=== PATIENT | male | born 1960 | race Caucasian/White ===

== ENCOUNTER → 2017-02-17 | Outpatient (CLI) | payer OTHER ==
[2017-02-17 13:37] LABS: Non-African American GFR(MDRD) >60 (>60 ml/min/1.73 sqM)
--- NOTE | 2017-02-18 19:56 | MR ---
EXAMINATION TYPE: MR cervical spine wo/w con DATE OF EXAM: 02/17/2017 2:38 PM COMPARISON: NONE HISTORY: cervical radiculopathy TECHNIQUE: Multiplanar, multisequence images of the cervical spine were acquired utilizing 20 mL intravenous Mul tiHance gadolinium contrast. Diffusion weighted imaging was performed. C2-C3: No evidence for degenerative disc disease. No disc bulge/herniation or protrusion. No Canal stenosis. Foramina are patent bilaterally. C3-C4: Central disc bulge has moderate anterior thecal sac compression and close approximation with s anisa cord. No spinal canal stenosis is present. There is moderate bilateral foraminal narrowing. C4-C5: Broad-based disc bulge is present with some extension inferiorly. No cord contact is evident. No AP spinal canal stenosis is present. Severe left and right foraminal narrowing is present. C5-C6: There is a central disc herniation with moderate anterior thecal sac compression. Cord contact is evident. Some cord flattening is present. Spinal canal stenosis is present. Neural foramen are se verely narrowed. C6-C7: There is a central disc herniation which is broad-based and extending inferior to C7. This is moderate anterior thecal sac compression. AP spinal canal stenosis is present. Neural foramen and sev ere right and moderate left foraminal stenosis. AP diameter is 0.8 cm. Cord deformity is present. C7-T1: Disc uncovering is present. There is mild anterior thecal sac compression. No focal disc herni ation is evident. Mild anterior thecal sac compression is present. Moderate right foraminal narrowing is present mild left foraminal narrowing is present. No abnormal enhancement is identified. IMPRESSION: Multilevel degenerative disc changes with loss of disc height especially through the C4-5, C5-6, and C6-7 levels. 2. No spinal canal stenosis due to disc bulging C5-6 and C6-7. 3. Cord contact with cord deformity is present C5-6 due to the disc bulging and herniation. Cord cont act is present C6-7. 4. Multilevel foraminal stenosis.
== END | disposition home or self-care (01) ==
LOC: RADMRIMAIN 13:02
PROVIDERS: ATTEND Internal Medicine Rheumatology
DX: M99.71 Connective tissue and disc stenosis of intervertebral foramina of cervical region (principal); M50.122 Cervical disc disorder at C5-C6 level with radiculopathy; M47.812 Spondylosis without myelopathy or radiculopathy, cervical region
CPT/HCPCS: 82565; 72156; A9577

== ENCOUNTER → 2017-03-12 | Outpatient (CLI) | payer OTHER ==
--- NOTE | 2017-03-13 00:37 | US ---
EXAMINATION TYPE: US MSK right wrist, median nerve DATE OF EXAM: 03/12/2017 1:39 PM COMPARISON: NONE CLINICAL HISTORY: 56-year-old male G56.01 CARPAL TUNNEL SYNDROME. TECHNIQUE: Multiple sonographic images of the median nerve within the distal forearm and carpal tunne l were obtained. Dynamic maneuvers were utilized to assess median nerve mobility. FINDINGS: The median nerve at the level of the pronator quadratus has a cross-sectional area of 8.1 sq mm. At the level of the carpal tunnel, there is fusiform dilatation with hypoechoic appearance and loss o f the normal fascicular architecture. The median nerve becomes thickened to a cross-sectional area of 15.5 sq mm at the level of the carpal tunnel. In addition, pinch and pinch/flex maneuvers show restricted mobility of the median nerve with loss of normal movement between the radial and ulnar bursae. IMPRESSION: Thickening, restricted mobility, and loss of the normal fascicular architecture of the median nerve a t the level of the carpal tunnel. Along with the overall increase in cross-sectional area by 7 sq mm, findings are suggestive of carpal tunnel syndrome.
== END | disposition home or self-care (01) ==
LOC: RADUSWWP 13:00
PROVIDERS: ATTEND Internal Medicine Rheumatology
DX: G56.01 Carpal tunnel syndrome, right upper limb (principal)

== ENCOUNTER → 2020-08-04 | Outpatient (CLI) | payer MEDICARE, OTHER ==
--- NOTE | 2020-08-04 14:27 | MR ---
EXAMINATION TYPE: MR cspine/lspine wo/w con DATE OF EXAM: 08/04/2020 COMPARISON: Prior MR cervical spine 02/17/2017 HISTORY: Stenosis / cervical radiculopathy TECHNIQUE: Multiplanar, multisequence images of the lumbar and cervical spine is performed without and with IV c ontrast, utilizing 9 mL intravenous Gadavist FINDINGS: Cervical spine MRI: There is a spinal curvature alignment is stable. There is multilevel spondylosis as seen on prior exam. Loss of disc height signal is present intervertebral level and there is endpla te discogenic marrow signal change, cervical cord signal is maintained. C2-3: Unremarkable C3-4: Posterior extension endplate disc complex causes mild anterior mass effect on the thecal sac. N o significant spinal stenosis. Uncovertebral joint hypertrophy causes bilateral foraminal encroachmen t C4-5: Bilateral foraminal encroachment is present. Posterior extension of endplate disc complex cause s mild anterior mass effect on the thecal sac. C5-6: Posterior extension endplate disc complex contacts the anterior cervical cord. There is mild to moderate central stenosis. Some foraminal encroachment is present greater on the left than on the ri ght. C6-7: Posterior extension endplate disc complex may contact the anterior cervical cord. Moderate cent ral stenosis. There is left-sided foraminal encroachment C7-T1: Unremarkable. No abnormal enhancement following contrast administration. IMPRESSION: Degenerative disc disease, multilevel foraminal encroachment. Findings similar to prior e xam. Lumbar spine MRI: Sagittal images of the lumbar spine show spinal curvature, vertebral bodies show preserved height, th ere is multilevel spondylosis with endplate discogenic marrow signal change. Loss of disc height and signal is present at intervertebral levels, vacuum phenomenon present at each level with exception of L2-3. L3 shows hemangioma within the vertebral body anteriorly and superiorly. No abnormal enhanceme nt following contrast administration. Tarlov cyst noted incidentally of the sacrum. L5-S1: There is a posterior central disc herniation present causing anterior mass effect on the theca l sac, circumferential extension endplate disc complex encroaches somewhat on the right neural forame n with associated facet arthropathy, hypertrophic change. L4-5: Posterior disc bulge causes only minimal anterior mass effect on the thecal sac. No significant spinal stenosis. Circumferential extension endplate disc complex encroaches somewhat on the right ne ural foramen. There is some facet arthropathy with hypertrophy of ligamentum flavum causing posterior lateral mass effect on the thecal sac L3-4: Posterior extension of endplate disc complex causes only minimal anterior mass effect on the th ecal sac. There is facet arthropathy with hypertrophy ligamentum flavum. Circumferential extension en dplate disc complex encroaches somewhat on the foramina greater on the right. L2-3: No evident disc herniation or significant foraminal encroachment, no spinal stenosis. L1-2: Posterior extension endplate disc complex causes anterior mass effect on the thecal sac. No sig nificant foraminal encroachment or spinal stenosis. T12-L1: Posterior extension endplate disc complex causes only minimal anterior mass effect on the the robert sac. IMPRESSION: Degenerative disc disease and facet arthropathy, foraminal encroachment as described.
== END | disposition home or self-care (01) ==
LOC: RADMRIMAIN 12:35
PROVIDERS: ATTEND Family Medicine
DX: M50.10 Cervical disc disorder with radiculopathy, unspecified cervical region (principal); M51.36 Other intervertebral disc degeneration, lumbar region; M47.816 Spondylosis without myelopathy or radiculopathy, lumbar region; M46.06 Spinal enthesopathy, lumbar region
CPT/HCPCS: 72156; 72158; A9585

== ENCOUNTER → 2021-06-15 | Outpatient (CLI) | payer MEDICARE, OTHER ==
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
[2021-06-15 13:00] VITALS: BP 100/68; PULSE 87; RESP 16; TEMP 98.1
== END ==
LOC: PNWHC3 12:19
PROVIDERS: ATTEND Anesthesiology
DX: M47.812 Spondylosis without myelopathy or radiculopathy, cervical region (principal); M47.816 Spondylosis without myelopathy or radiculopathy, lumbar region; G20 Parkinson's disease; E78.5 Hyperlipidemia, unspecified; M19.90 Unspecified osteoarthritis, unspecified site; Z87.891 Personal history of nicotine dependence; Z79.899 Other long term (current) drug therapy; Z88.4 Allergy status to anesthetic agent; Z91.040 Latex allergy status
CPT/HCPCS: 99211

== ENCOUNTER → 2021-11-24 | Outpatient (CLI) | payer MEDICARE, OTHER ==
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
== END ==
LOC: SLEEP 13:38
PROVIDERS: ATTEND Internal Medicine
DX: G47.33 Obstructive sleep apnea (adult) (pediatric) (principal); G47.52 REM sleep behavior disorder; G20 Parkinson's disease; F32.A Depression, unspecified; Z86.59 Personal history of other mental and behavioral disorders; Z86.79 Personal history of other diseases of the circulatory system; Z85.828 Personal history of other malignant neoplasm of skin; Z98.890 Other specified postprocedural states; Z87.828 Personal history of other (healed) physical injury and trauma; Z90.09 Acquired absence of other part of head and neck; Z96.652 Presence of left artificial knee joint; Z90.49 Acquired absence of other specified parts of digestive tract; Z85.850 Personal history of malignant neoplasm of thyroid; Z90.89 Acquired absence of other organs; Z90.79 Acquired absence of other genital organ(s); Z91.040 Latex allergy status; Z88.4 Allergy status to anesthetic agent
CPT/HCPCS: 99211

== ENCOUNTER 2024-07-29 15:26 | Emergency (ER) | payer MEDICARE, OTHER ==
[2024-07-29 15:45] VITALS: TEMP 97.9
--- NOTE | 2024-07-29 15:56 | ED ---
General Adult HPI - General Chief complaint: Psychiatric Symptoms Stated complaint: Petitioned Time Seen by Provider: 07/29/24 15:40 Source: patient, EMS, RN notes reviewed Mode of arrival: EMS Limitations: altered mental status - History of Present Illness Initial comments: Patient is a 63-year-old male presenting to the emergency department for mental health evaluation. Patient believes his petitioned him. Patient questions whether or not his medications are working. Patient does not have any specific complaints and is reluctant to provide full history. Patient denies alcohol use. Patient admits to marijuana use. No new physical complaints. Patient denies suicidal or homicidal thoughts. No hallucinations. - Related Data Home Medications Medication Instructions Recorded Confirmed Finasteride [Proscar] 5 mg PO DAILY 08/20/20 07/29/24 Levothyroxine Sodium [Synthroid] 175 mcg PO DAILY 08/20/20 07/29/24 Ascorbic Acid/Multivit-Min 1,000 mg PO DAILY 07/29/24 07/29/24 [Emergen-C 1,000 mg Packet] Carbidopa/Levodopa [Rytary ER 1 cap PO QID 07/29/24 07/29/24 61.25 mg-245 mg Cap] DULoxetine HCL [Cymbalta] 60 mg PO BID 07/29/24 07/29/24 Donepezil [Aricept] 10 mg PO DAILY 07/29/24 07/29/24 Gabapentin [Neurontin] 100 mg PO TID 07/29/24 07/29/24 Meclizine [Antivert] 25 mg PO BID 07/29/24 07/29/24 Melatonin 15 mg PO HS 07/29/24 07/29/24 Meloxicam [Mobic] 15 mg PO DAILY 07/29/24 07/29/24 Metoprolol Succinate (ER) [Toprol 12.5 mg PO DAILY 07/29/24 07/29/24 Xl] Midodrine HCl [ProAmatine] 10 mg PO TID 07/29/24 07/29/24 Morphine Sulfate ER [Ms Contin] 15 mg PO Q12HR 07/29/24 07/29/24 Omeprazole 40 mg PO DAILY 07/29/24 07/29/24 Ondansetron [Zofran] 4 mg PO TID 07/29/24 07/29/24 QUEtiapine [SEROquel] 50 mg PO HS 07/29/24 07/29/24 Sennosides/Docusate Sodium 1 tab PO BID 07/29/24 07/29/24 [Senna-S 8.6-50 mg Tablet] Tamsulosin [Flomax] 0.4 mg PO DAILY 07/29/24 07/29/24 Topiramate [Topamax] 50 mg PO BID 07/29/24 07/29/24 amantadine HCL [Amantadine] 100 mg PO TID-W/MEALS 07/29/24 07/29/24 tadalafiL [Cialis] 5 mg PO DAILY 07/29/24 07/29/24 Allergies Allergy/AdvReac Type Severity Reaction Status Date / Time latex Allergy Rash/Hives Verified 07/29/24 19:18 midazolam [From Versed] Allergy Rash/Hives Verified 07/29/24 19:18 Review of Systems ROS Statement: Those systems with pertinent positive or pertinent negative responses have been documented in the HPI. ROS Other: All systems not noted in ROS Statement are negative. Constitutional: Denies: fever Eyes: Denies: eye pain ENT: Denies: ear pain Respiratory: Denies: cough Cardiovascular: Denies: chest pain Endocrine: Denies: fatigue Gastrointestinal: Denies: abdominal pain Musculoskeletal: Denies: back pain Skin: Denies: rash Psychiatric: Reports: as per HPI Past Medical History Past Medical History: Cancer, GERD/Reflux, Hyperlipidemia, Osteoarthritis (OA), Pneumonia, Prostate Disorder, Sleep Apnea/CPAP/BIPAP, Thyroid Disorder Additional Past Medical History / Comment(s): low blood pressure, WPW syndrome and bigeminy, histoplasmosis (lung fungal), kidney stones, hx staph infection in rt elbow, no cpap used, hiatal hernia, hx thyroid cancer, hx skin cancer, hx anemia, hx spinal meningitis, hx "several concussion and fx skull" History of Any Multi-Drug Resistant Organisms: None Reported Past Surgical History: Cardiac Ablation, Cholecystectomy, Heart Catheterization, Orthopedic Surgery, Tonsillectomy Additional Past Surgical History / Comment(s): mult cardiac ablations, thyroidectomy, surgery to check lymph nodes in chest for cancer, left knee replacement, rt hand surgery -trigger fingers, removed multiple skin cancers, left knee surgeries/arthroscopy, septal surgery, testicle removed - preventatively. I&D right elbow for staph infection Past Anesthesia/Blood Transfusion Reactions: Previous Problems w/ Anesthesia, Motion Sickness Additional Past Anesthesia/Blood Transfusion Reaction / Comment(s): bleeding issues in past post surgeries - so doesnt take any blood thinners, "sometimes anesthesia does not work-I am wide awake" Past Psychological History: Anxiety, Depression Smoking Status: Former smoker Past Alcohol Use History: None Reported Past Drug Use History: None Reported - Past Family History Father Family Medical History: No Reported History Mother Family Medical History: No Reported History General Exam Limitations: altered mental status General appearance: alert, in no apparent distress Head exam: Present: normocephalic Eye exam: Present: normal appearance Neck exam: Present: normal inspection Respiratory exam: Present: normal lung sounds bilaterally Cardiovascular Exam: Present: regular rate, normal rhythm GI/Abdominal exam: Present: soft. Absent: tenderness Extremities exam: Present: normal inspection Neurological exam: Present: alert Psychiatric exam: Present: flat affect Skin exam: Present: normal color Course Vital Signs 07/29/24 15:32 Temperature 97.9 F Pulse Rate 82 Respiratory 18 Rate Blood Pressure 138/76 O2 Sat by Pulse 98 Oximetry Medical Decision Making - Medical Decision Making Was pt. sent in by a medical professional or institution (, PA, MIXING TECHNICIAN, urgent care, hospital, or prison...) When possible be specific @ -No Did you speak to anyone other than the patient for history (EMS, parent, family, police, friend...)? What history was obtained from this source @ -No Did you review nursing and triage notes (agree or disagree)? Why? @ -I reviewed and agree with nursing and triage notes Were old charts reviewed (outside hosp., previous admission, EMS record, old EKG, old radiological studies, urgent care reports/EKG's, prison records)? Report findings @ -Petition reviewed Differential Diagnosis (chest pain, altered mental status, abdominal pain women, abdominal pain men, vaginal bleeding, weakness, fever, dyspnea, syncope, headache, dizziness, GI bleed, back pain, seizure, CVA, palpatations, mental health, musculoskeletal)? @ -Differential Mental Health Depression, anxiety, bipolar, psychosis, schizophrenia, borderline personality, situational depression, adjustment disorder, behavioral disorder, brain tumor, malingering, substance abuse, encephalopathy, medication reaction, dementia, hypothyroidism, degenerative neurologic disorder, lupus.... This is not meant to be all-inclusive list EKG interpreted by me (3pts min.). @ -As above X-rays interpreted by me (1pt min.). @ -None done CT interpreted by me (1pt min.). @ -None done U/S interpreted by me (1pt. min.). @ -None done What testing was considered but not performed or refused? (CT, X-rays, U/S, labs)? Why? @ -None What meds were considered but not given or refused? Why? @ -None Did you discuss the management of the patient with other professionals (professionals i.e. DrSanti, PA, MIXING TECHNICIAN, lab, RT, psych nurse, social work faculty member, general ledger accountant, teacher, chief compliance officer, case monitor)? Give summary @ -Case was discussed with psychiatric nurse with plans for discharge Was smoking cessation discussed for >3mins.? @ -No Was critical care preformed (if so, how long)? @ -No Were there social determinants of health that impacted care today? How? (Homelessness, low income, unemployed, alcoholism, drug addiction, transportation, low edu. Level, literacy, decrease access to med. care, skilled nursing, rehab)? @ -No Was there de-escalation of care discussed even if they declined (Discuss DNR or withdrawal of care, Hospice)? DNR status @ -No What co-morbidities impacted this encounter? (DM, HTN, Smoking, COPD, CAD, Cancer, CVA, ARF, Chemo, Hep., AIDS, mental health diagnosis, sleep apnea, morbid obesity)? @ -History of Parkinson Was patient admitted / discharged? Hospital course, mention meds given and route, prescriptions, significant lab abnormalities, going to OR and other pertinent info. @ -Patient presents with concerns for not taking his medications and seeing cobwebs. Patient denies any problems. Patient denies suicidal or homicidal thoughts. Patient will be discharged with recommended follow-up Undiagnosed new problem with uncertain prognosis? @ -No Drug Therapy requiring intensive monitoring for toxicity (Heparin, Nitro, Insulin, Cardizem)? @ -No Were any procedures done? @ -No Diagnosis/symptom? @ -Mood disorder Acute, or Chronic, or Acute on Chronic? @ -Acute Uncomplicated (without systemic symptoms) or Complicated (systemic symptoms)? @ -Default Side effects of treatment? @ -No Exacerbation, Progression, or Severe Exacerbation? @ -No Poses a threat to life or bodily function? How? (Chest pain, USA, DC, pneumonia, PE, COPD, DKA, ARF, appy, cholecystitis, CVA, Diverticulitis, Homicidal, Suicidal, threat to staff... and all critical care pts) @ -No - Lab Data Lab Results 07/29/24 Range/Units 17:03 Urine Opiates Screen Detected H (NotDetected) Ur Oxycodone Screen Not Detected (NotDetected) Urine Methadone Screen Not Detected (NotDetected) Ur Barbiturates Screen Not Detected (NotDetected) U Tricyclic Antidepress Detected H (NotDetected) Ur Phencyclidine Scrn Not Detected (NotDetected) Ur Amphetamines Screen Not Detected (NotDetected) U Methamphetamines Scrn Not Detected (NotDetected) U Benzodiazepines Scrn Not Detected (NotDetected) Urine Cocaine Screen Not Detected (NotDetected) U Marijuana (THC) Screen Detected H (NotDetected) Disposition Clinical Impression: Mood disorder Disposition: HOME SELF-CARE Condition: Stable Instructions (If sedation given, give patient instructions): Mood Disorders (ED), Parkinson Disease (ED) Additional Instructions: Please do follow-up with your primary care physician in the next day or 2 for recheck. Please follow-up with your neurologist in the next couple of days as well. Please follow-up with mental health services as directed. Return for thoughts of self-harm, worsening symptoms or any other concerns. Is patient prescribed a controlled substance at d/c from ED?: No Referrals: Vicky Chong DO [Primary Care Provider] - 1-2 days Time of Disposition: 20:49
[2024-07-29 17:24] LABS: Amphetamine Screen,Urine Not Detected (NotDetected); Benzodiazepines Screen,Urine Not Detected (NotDetected); Cocaine Screen,Urine Not Detected (NotDetected); Opiate Screen,Urine Detected (NotDetected); Phencyclidine Screen,Urine Not Detected (NotDetected); Tricyclic Antidepressant,Urine Detected (NotDetected); Urn Cannabinoid Scrn Detected (NotDetected)
[2024-07-29 17:25] LABS: Barbiturate Screen,Urine Not Detected (NotDetected); Methadone Screen, Urine Not Detected (NotDetected); Oxycodone Screen, Urine Not Detected (NotDetected)
[2024-07-29 21:04] VITALS: BP 153/78; PULSE 76; RESP 16
== END 2024-07-29 21:10 | disposition home or self-care (01) ==
LOC: EC 15:26
CPT/HCPCS: 80306; 82075; 99285